=== PATIENT | female | born 1960 | race Caucasian/White ===

== ENCOUNTER 2018-10-11 22:23 | Observation (INO) | payer SELFPAY ==
[~2018-10-11 22:23] MED LIST: Iopamidol 370 76% 100 ML VIAL ONE
[2018-10-12 03:12] LABS: Troponin I Less than 0.010 ng/mL (< 0.028)
[2018-10-12] MEDS ORDERED: Acetaminophen 325 MG TAB PO PRN (07:37)
[2018-10-12] MEDS ORDERED: Ondansetron ODT 4 MG TAB PO PRN (07:37)
[2018-10-12] MEDS ORDERED: Zolpidem Tartrate 5 MG TAB PO PRN (07:37)
--- NOTE | 2018-10-12 07:43 | CT ---
CT CHEST AND ABDOMEN AND PELVIS WITH 3D VOLUME RENDERING WITH CONTRAST CT AORTOGRAM: INDICATION: Chest pain new onset. FINDINGS: No evidence of aortic aneurysm, dissection, or periaortic hematoma. There is mild scattered vascular calcification. There is a cavitary soft tissue nodule of the medial right upper lobe within the apex. There is a le ft apical soft tissue nodule as well. Cavitary nodule of the right apex measures approximately 1.4 c m in diameter, and the contralateral left apical nodule measured 1 cm. No acute intraabdominal patho logy is seen. There is scattered osseous degenerative change. IMPRESSION: 1. No acute aortic pathology. 2. Incidental note of bilateral spiculated upper lobe pulmonary nodules, with cavitation on the righ t. Malignancy is the diagnosis of exclusion. Recommend followup with pulmonary medicine consultatio n. In addition, for further imaging assessment, recommend PET CT for further evaluation.
--- NOTE | 2018-10-12 07:55 | CT ---
CT OF HEAD NONCONTRAST: Indication: Brain mass. Comparison: None. FINDINGS: Ventricular system is normal in size. There is no evidence of acute intracranial hemorrhage, mass eff ect, or midline shift. Calvarium is intact. No fluid level of the visualized paranasal sinuses. IMPRESSION: 1. No acute intracranial abnormalities. 2. Given provided clinical history of brain mass, recommend follow up with pre and post contrast brai n MRI for further evaluation. POS: AKIN
--- NOTE | 2018-10-12 08:14 | ULT ---
ARTERIAL DOPPLER STUDY LEFT UPPER EXTREMITY: Indications: Left arm pain, numbness. Technique: Color doppler, spectral analysis and velocity records obtained in the arteries of the left upper extremity. FINDINGS: Left subclavian artery shows biphasic waveform. Left axillary artery shows a triphasic waveform. Left brachial artery shows triphasic waveform. Left ulna and left radial arteries show biphasic to triphasic waveform. IMPRESSION: Unremarkable arterial doppler exam of the left upper extremity. Arteries in the left upper extremity show normal flow and waveform. POS: LENIN
--- NOTE | 2018-10-12 08:42 | HP ---
PRIMARY CARE PROVIDER: Chasidy Hagen PA-C The patient referred to [facility] by [facility] after transfer from [facility]. CHIEF COMPLAINT: Chest pain radiating to left arm. The patient had a squeezing pressure anterior chest sensation with shortness of breath, lasted 20 minutes. No sweats, but some associated nausea. She has had some associated left arm pain, which has not totally resolved. PAST MEDICAL HISTORY: Pertinent for hypertension, COPD, and supraventricular tachycardia. CURRENT MEDICATIONS: Hydrochlorothiazide 25 mg a day and Breo 200/25 daily. ALLERGIES: TO SULFA, WHICH CAUSES HIVES. SHE DOES NOT WISH TO HAVE NARCOTICS SHE HAS HAD A PROBLEM WITH ADDICTION IN THE PAST. PAST SURGICAL HISTORY: Appendectomy with incidental lymph node removal, hysterectomy. FAMILY HISTORY: Mother has had a coronary artery bypass graft, has lung cancer. Father of lung cancer. She has a brother with thyroid disease and a brother with asthma. She is x3. Smokes one pack per day. Drinks two drinks with rum and water daily. Full code status. Next of kin is her mother. REVIEW OF SYSTEMS: HEAD: Has occasional headaches, occasional blood pressure drops with rapid pulse that causes dizziness. No fainting. EYES: She wears glasses. No double vision, blurred vision, flashing lights. EARS, NOSE, AND THROAT: No ear pain or drainage. No nasal bleeding. No trouble swallowing. CARDIAC: See present illness. No orthopnea or paroxysmal nocturnal dyspnea. RESPIRATIONS: She has episodes of coughing and wheezing secondary to her COPD. GASTROINTESTINAL: Nausea with present illness. Otherwise negative for nausea, vomiting, abdominal pain, diarrhea, or constipation. GENITOURINARY: No hematuria or dysuria. MUSCULOSKELETAL: Occasional swelling in her legs, none currently. No muscle pain or joint pains. NEUROLOGICAL: No stroke, seizure, or focal weakness. PSYCHIATRIC: History of narcotic addiction in the past. She desires no narcotics. SKIN: Easy bruising. No rash. HEME/LYMPH: No tender swollen lymph nodes in axilla, inguinal, or cervical area. PHYSICAL EXAMINATION: GENERAL: Alert, pleasant, cooperative lady, oriented x3. VITAL SIGNS: Blood pressure 137/85, pulse 79, respirations 16, O2 saturation 94% on room air, temperature 97.9. HEAD, EYES, EARS, NOSE, AND THROAT: Showed pupils equal and round. Extraocular movements are intact. Sclerae are white. Tympanic membranes are clear. Nose clear. Throat is clear. NECK: Supple without jugular venous distention, adenopathy, or thyromegaly. CHEST: Hyper-resonant with decreased breath sounds, but no focal findings. No wheezes. HEART: Had a regular rate and rhythm. First and second heart sounds are clear. There are no appreciated murmurs or gallops. ABDOMEN: Soft. Bowel sounds are normal. There is no hepatosplenomegaly. No mass. No rebound or bruits. EXTREMITIES: Demonstrate no masses. No cyanosis, clubbing or edema. Pulses; carotid, radial, femoral, and dorsalis pedis pulses full and symmetric. SKIN: Warm and dry with actinic changes. LYMPHATIC SURVEY: Reveals no tender, swollen lymph nodes in the axilla, inguinal, or cervical area. No petechial hemorrhages. NEUROLOGICAL: Cranial nerves 2 through 12 are intact. Moves all extremities. Deep tendon reflexes intact. IMAGING STUDIES: EKG regular sinus rhythm. No ST-T abnormality. Chest x-ray, some hyperinflation, no masses noted, no infiltrate, cardiomegaly. Both reviewed by me. A CT scan has been done. No formal report is back. It is reported to suggest spiculated nodules. LABORATORY DATA: CBC unremarkable, except for some microcytosis. Comprehensive metabolic profile unremarkable, except for a BUN of 24. Cardiac enzymes normal x3. PROBLEMS: 1. Chest pain consistent with cardiac chest pain. 2. Abnormal masses on CT scan of the chest. 3. Chronic obstructive pulmonary disease. 4. Hypertension. 5. Supraventricular tachycardia. PLAN: 1. Exercise Cardiolite stress test. I suspect the patient will not be able to do the exercise part. This has been discussed with her that it will be converted to a chemical stress test if she cannot do the exercise part. 2. Further evaluation will be required for the chest mass. Her Breo Ellipta will be continued. Further recommendations, after stress test is completed. Job ID: [id number]
[2018-10-12] MEDS ORDERED: Aspirin 325 MG TAB PO SCH (09:00)
[2018-10-12] MEDS ORDERED: Enoxaparin Sodium 40 MG/0.4 ML SYRINGE SC SCH (09:00)
[2018-10-12] MEDS ORDERED: Regadenoson 0.4 MG/5 ML SYRINGE ONE (09:32)
[2018-10-12] MEDS ORDERED: Aspirin 325 MG TAB ONE (11:20)
[2018-10-12] MEDS ORDERED: Enoxaparin Sodium 40 MG/0.4 ML SYRINGE ONE (11:20)
--- NOTE | 2018-10-12 11:36 | NM ---
MYOCARDIAL PERFUSION EVALUATION: INDICATION: Chest pain. RADIOPHARMACEUTICAL: 31 mCi and 10 mCi technetium-99m sestamibi IV, administered at stress and rest. Please reference the stress EKG portion of this exam through the division of cardiology for further d etails. FINDINGS: Evaluation of stress and rest imaging reveals no significant reversible defect or fixed defect to ind icate ischemia or scar. Gated imaging reveals wall motion contractility with a calculated LVEF of gre ater than 70%. IMPRESSION: 1. No scintigraphic evidence of significant region of ischemia, or scar. 2. Normal left ventricular systolic function. POS: LENIN
[2018-10-12 14:11] VITALS: BMI 19.8
[2018-10-12 14:45] VITALS: BP 121/63; TEMP 98.1
--- NOTE | 2018-10-12 16:06 | PDOC.EVN ---
Event Note - Event Note Event Note: test - no defect. have asked Dr Campos to see re abnormal CT chest
--- NOTE | 2018-10-12 16:59 | CON ---
DATE OF CONSULTATION: HISTORY OF PRESENT ILLNESS: She is a pleasant 58-year-old female, lifelong smoker of two pack a day, states she drinks two glasses of rum and Coke every night, presented to the hospital with symptoms of chest pain since yesterday. Her initial chest x-ray was normal, but CT chest revealed two lung nodules, one in the right upper lung, which appeared to be cavitary in size, too small about 1.4 cm, one in the left apex measuring 1 cm. She denies any fevers, chills, sweats, hemoptysis, or any difficulty breathing. In fact, she states that most days she could walk a block or so without getting markedly dyspneic. There is no prior history of TB, pneumonia, or bronchial asthma. She has a diagnosis of COPD and recently started seeing a physician in [place], [place]. PAST MEDICAL HISTORY: Hypertension, COPD. MEDICATIONS: Chronic medications include: 1. Dulera 100, 1 puff a day. 2. Hydrochlorothiazide 25. 3. Aspirin. 4. Tylenol. 5. Ambien. PREVIOUS SURGERIES: Multiple included hysterectomy for uterine cervical cancer, appendix. ALLERGIES: NONE. SOCIAL HISTORY: She works in a [employer] store. REVIEW OF SYSTEMS: Ten-point negative. PHYSICAL EXAMINATION: VITAL SIGNS: Sats are 98% on room air, pulse 80, respiratory rate 18, blood pressure 120/63, temperature 98. CHEST: Decreased breath sounds, no wheezing CARDIAC: Normal S1 and S2. No gallops. ABDOMEN: Negative mass. IMPRESSION: 1. Abnormal CT, right and left upper lung nodule of unknown significance. 2. Tobacco abuse, chronic obstructive pulmonary disease. She will be discharged home. I will be happy to see her in the office in three months with a CT of the chest to reassess the lung nodules. In the meantime, she is to refrain from smoking. Follow up with her primary care physician regarding her arm pain. This is a consultation note, 70 minutes, 50% direct patient care. Job ID: [id number]
--- NOTE | 2018-10-12 16:59 | DIS ---
DATE OF ADMISSION: 10/12/2018 DATE OF DISCHARGE: 10/12/2018 PRIMARY CARE PROVIDER: Dr. Hagen. DISPOSITION: Discharged to home. FINAL DIAGNOSES: Noncardiac chest pain, pulmonary mass x2, chronic obstructive pulmonary disease, hypertension, and supraventricular tachycardia. MEDICATIONS: Discharge medicines same as home medicines; Breo Ellipta 200/25 daily, hydrochlorothiazide 25 mg daily. ALLERGIES: SULFA CAUSES HIVES. HOSPITAL COURSE: The patient referred to [facility] by [facility] for chest pain. Her initial laboratory and EKG were all unremarkable. Nuclear medicine stress test was unremarkable. In the process of doing her workup, a CT dissection protocol was done in the ER, which showed 2 spiculated masses in the upper lobes. Dr. Campos was consulted. He spoke with the patient and evaluated the x-ray, stated they were too small for a biopsy at this time. Recommended followup in his office with a CT in 3 months. The patient is agreeable with this. Follow up in [address] Campos and [address] Hagen. Job ID: [id number]
[2018-10-12] MEDS ORDERED: Mometasone/Formoterol 120 PUFF INHALER INH SCH (18:30)
[2018-10-13] MEDS ORDERED: Hydrochlorothiazide 25 MG TAB PO SCH (09:00)
--- NOTE | 2018-10-16 10:32 | STRESS ---
Acquisition Time: 2018-10-12 09:36:59 Total Exercise Time: 00:06:31 Test Indications: CHEST PAIN Medications: Protocol: SHAHRAM Max HR: 136 BPM 82% of Pred: 164 BPM Max BP: 132/082 mmHG Max Work Load: 7.0 METS RESTING ECG: NORMAL SINUS RHYTHM AT 67 BPM SYMPTOMS: DYSPNEA NORMAL BP RESPONSE ECTOPY: NONE ECG STRESS: NO SIGNIFICANT CHANGES INTERPRETATION: AWAIT NUCLEAR IMAGES FOR DEFINITIVE DIAGNOSIS COMMENTS: CONVERTED TO LEXISCAN-WALKING/DID NOT REACH TARGET HEART RATE ON TREADMILL Confirmed by KATIUSKA GONSALES ([id number]), news videotape editor TOMER RAMIREZ ([id number]) on 10/16/2018 10:31:32 AM Referred By: MD Jennifer PEREZ Confirmed By:KATIUSKA GONSALES
--- NOTE | 2018-10-16 15:00 | EKG ---
Test Reason : CP Blood Pressure : / mmHG Vent. Rate : 065 BPM Atrial Rate : 065 BPM P-R Int : 132 ms QRS Dur : 090 ms QT Int : 458 ms P-R-T Axes : 022 069 041 degrees QTc Int : 476 ms Normal sinus rhythm Normal ECG Confirmed by ROBIN VACA M.D. ([id number]), online content editor WOODY LINDO ([id number]) on 10/16/2018 3:00:01 PM Referred By: Confirmed By:ROBIN VACA M.D.
== END 2018-10-12 17:29 | disposition home or self-care (01) ==
LOC: ERS 22:23 → 2SW 10-12 02:26 → ERHOLD 10-12 02:28 → 2SW 10-12 14:29
PROVIDERS: ADMIT Family Medicine; ATTEND Family Medicine
DX: R07.89 Other chest pain (principal); R91.8 Other nonspecific abnormal finding of lung field; J44.9 Chronic obstructive pulmonary disease, unspecified; I47.1 Supraventricular tachycardia; F17.210 Nicotine dependence, cigarettes, uncomplicated; I10 Essential (primary) hypertension; Z79.899 Other long term (current) drug therapy; Z88.2 Allergy status to sulfonamides
CPT/HCPCS: 36415; 70450; 71275; 78452; 84484; 93005; 93017; 93923; A9500; G0378; J1650; J2785